=== PATIENT | female | born 2000 | race Caucasian/White ===

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

== ENCOUNTER 2021-06-12 16:07 | Emergency (ER) | payer OTHER, MEDICAID ==
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
[2021-06-12 18:11] VITALS: BP 113/72; PULSE 89
== END 2021-06-12 17:40 | disposition home or self-care (01) ==
LOC: FB.ED 16:07
DX: S29.011A Strain of muscle and tendon of front wall of thorax, initial encounter (principal); J45.909 Unspecified asthma, uncomplicated; Z79.899 Other long term (current) drug therapy; V03.99XA Pedestrian with other conveyance injured in collision with car, pick-up truck or van, unspecified whether traffic or nontraffic accident, initial encounter
CPT/HCPCS: 72070; 99284-25

== ENCOUNTER 2022-05-07 19:06 | Emergency (ER) | payer MEDICAID ==
[2022-05-07 19:22] VITALS: BP 118/70; PULSE 87
== END 2022-05-07 20:58 | disposition home or self-care (01) ==
LOC: FB.ED 19:06
DX: S62.316A Displaced fracture of base of fifth metacarpal bone, right hand, initial encounter for closed fracture (principal); F17.210 Nicotine dependence, cigarettes, uncomplicated; W22.09XA Striking against other stationary object, initial encounter
CPT/HCPCS: 29125; 73130-RT; 99283-25

== ENCOUNTER 2022-06-08 12:19 | Emergency (ER) | payer MEDICAID | END 2022-06-08 12:30 | disposition left against medical advice (07) | LOC: FB.ED 12:19 | DX: Z53.21 Procedure and treatment not carried out due to patient leaving prior to being seen by health care provider (principal) ==

== ENCOUNTER 2022-07-16 01:31 | Emergency (ER) | payer MEDICAID ==
[2022-07-16] MEDS ORDERED: Ibuprofen 800 MG Tab PO STA (02:03)
[2022-07-16 02:20] VITALS: BP 117/71; PULSE 89
== END 2022-07-16 02:28 | disposition home or self-care (01) ==
LOC: FB.ED 01:31
DX: S60.041A Contusion of right ring finger without damage to nail, initial encounter (principal); W22.09XA Striking against other stationary object, initial encounter
CPT/HCPCS: 73140; 99283; A9270

== ENCOUNTER 2022-10-10 16:00 | Emergency (ER) | payer MEDICAID ==
[2022-10-10 17:34] VITALS: BP 114/72; PULSE 81
== END 2022-10-10 17:22 | disposition home or self-care (01) ==
LOC: FB.ED 16:00
DX: I95.1 Orthostatic hypotension (principal); F17.210 Nicotine dependence, cigarettes, uncomplicated; Z88.8 Allergy status to other drugs, medicaments and biological substances
CPT/HCPCS: 80307; 81001; 81025; 99284

== ENCOUNTER 2022-12-11 15:05 | Emergency (ER) | payer MEDICAID ==
[2022-12-11 16:26] VITALS: BP 102/73; PULSE 65
== END 2022-12-11 16:17 | disposition home or self-care (01) ==
LOC: FB.ED 15:05
DX: N39.0 Urinary tract infection, site not specified (principal); Z72.0 Tobacco use; Z88.8 Allergy status to other drugs, medicaments and biological substances; Z79.899 Other long term (current) drug therapy
CPT/HCPCS: 81001; 99284

== ENCOUNTER 2023-02-21 15:10 | Emergency (ER) | payer MEDICAID ==
[2023-02-21 16:13] LABS: ESTIMATED GFR 131 mL/min (>60)
[2023-02-21 16:56] VITALS: BP 121/68; PULSE 63
== END 2023-02-21 16:55 | disposition home or self-care (01) ==
LOC: FB.ED 15:10
DX: T43.221A Poisoning by selective serotonin reuptake inhibitors, accidental (unintentional), initial encounter (principal); F12.10 Cannabis abuse, uncomplicated; Z79.899 Other long term (current) drug therapy; Z88.8 Allergy status to other drugs, medicaments and biological substances
CPT/HCPCS: 36415; 80048; 80307; 81025; 85025; 93005; 99284